=== PATIENT | male | born 1955 | race Caucasian/White ===

== ENCOUNTER → 2023-05-15 15:31 | Outpatient (CLI) | payer MEDICARE, SELFPAY ==
--- NOTE | 2023-05-15 15:40 | DI.RAD.S_ITS ---
PROCEDURE: XR FOOT RT MIN 3V INDICATIONS: Right foot pain TECHNIQUE: 3 views of the foot were acquired. COMPARISON: None. FINDINGS: Bones: No fractures or dislocations. No suspicious bony lesions. Plantar calcaneal enthesophyte. Soft tissues: No tibiotalar joint effusion. Achilles tendon appears normal. IMPRESSION: No displaced fracture. Dictated by: Alhaji Bob M.D. on 05/15/2023 at 16:36 Approved by: Alhaji Bob M.D. on 05/15/2023 at 16:37
== END ==
PROVIDERS: PCP Physician Assistant; Referring Provider Nurse Practitioner Family; Visit Provider Nurse Practitioner Family
DX: M79.671 Pain in right foot (principal)
CPT/HCPCS: 73630

== ENCOUNTER → 2023-07-07 09:00 | Outpatient (CLI) | payer MEDICARE, SELFPAY ==
--- NOTE | 2023-07-07 | DI.MRI.S_ITS ---
PROCEDURE: MR FOOT RT WO/W CON INDICATIONS: Right foot pain / idiopathic neuropathy TECHNIQUE: Noncontrast sagittal T1 spin echo and T2 fast spin echo with fat saturation, long-axis T1 spin echo and STIR; short-axis T1 spin echo with and without fat saturation, and T2 fast spin echo with fat saturation through the forefoot. Post-contrast short axis, long axis, and sagittal T1 spin echo with fat saturation through the forefoot. COMPARISON: [facility], CR, XR FOOT RT MIN 3V, 05/15/2023, 15:39. FINDINGS: Image quality: Excellent. Bones and joints: No acute trabecular bone injury or fracture. Circumscribed [id number] lesion at the 1st proximal phalangeal base is most likely related to overlying cartilage loss although a nonaggressive osseous lesion such as an enchondroma could appear similarly. Mild to moderate degenerative changes are seen at the 1st metatarsophalangeal joint and at the interphalangeal joints of the toes. Focal subchondral edema is seen at the articulation between the 1st and 2nd cuneiforms. No subluxation of the hallux sesamoids. No suspicious osseous enhancement. Soft tissues: No enhancing soft tissue mass. There is diffuse fatty infiltration of the intrinsic foot musculature compatible with chronic denervation changes. Visualized flexor and extensor tendons appear intact, without tenosynovitis. The distal insertions of the peroneus brevis and longus tendons appear intact. The principal Lisfranc ligament appears intact. No interdigital mass. Sagittal images demonstrate no evidence for plantar plate tears. IMPRESSION: 1. Diffuse fatty infiltration of the intrinsic foot musculature is consistent with chronic denervation changes. 2. [id number]-[id number]-[id number] degenerative changes at the 1st metatarsophalangeal joint and throughout the interphalangeal joints of the toes. Circumscribed [id number] lesion in the 1st proximal phalangeal base is most likely a subchondral cyst related to overlying cartilage loss versus a nonaggressive osseous lesion such as an enchondroma. Focal degenerative changes at the 1st and 2nd cuneiforms. Approved by: Jose Vo M.D. on 07/07/2023 at 14:13
== END ==
PROVIDERS: PCP Physician Assistant; Referring Provider Nurse Practitioner Family; Visit Provider Nurse Practitioner Family
DX: G60.9 Hereditary and idiopathic neuropathy, unspecified (principal); M79.671 Pain in right foot
CPT/HCPCS: 73720; A9579

== ENCOUNTER → 2024-06-22 12:30 | Outpatient (CLI) | payer MEDICARE, SELFPAY ==
--- NOTE | 2024-06-22 12:33 | DI.RAD.S_ITS ---
PROCEDURE: XR HIP W PEL IF DONE LT 2V INDICATIONS: HIP PAIN TECHNIQUE: AP pelvis with lateral view(s) of the left hip(s). COMPARISON: None. FINDINGS: Bones: No fractures or dislocations. Pelvic ring appears intact. No suspicious bony lesions. Moderate bilateral degenerative hip joint space narrowing. Minimal periarticular osteophytes. No erosions. Degenerative changes are present within the lower lumbar spine. Soft tissues: The visualized bowel gas pattern is normal. No suspicious soft tissue calcifications. IMPRESSION: Moderate bilateral hip arthritic change. Dictated by: Tana Correia M.D. on 06/22/2024 at 21:30 Approved by: Tana Correia M.D. on 06/22/2024 at 21:31
== END ==
PROVIDERS: PCP Physician Assistant; Referring Provider Physician Assistant; Visit Provider Physician Assistant
DX: M25.552 Pain in left hip (principal)
CPT/HCPCS: 73502

== ENCOUNTER → 2024-07-13 08:20 | Outpatient (CLI) | payer MEDICARE, SELFPAY ==
--- NOTE | 2024-07-13 | DI.US.S_ITS ---
PROCEDURE: US ABDOMEN LIMITED INDICATIONS: ELEVATED LIVER FUNCTION TESTS TECHNIQUE: Real-time scanning was performed of the abdominal and retroperitoneal organs, with image documentation. COMPARISON: None. FINDINGS: Liver: Liver is normal in size and homogeneous in echotexture. Gallbladder: Gallbladder is normal in sonographic appearance without gallstones, gallbladder wall thickening, pericholecystic fluid, or abnormal sonographic Wolf's. Biliary ducts: Intrahepatic bile ducts are non-dilated. Extrahepatic bile duct caliber measures 4 mm. Normal is 6-7 mm or less in diameter, or 10 mm or less post-cholecystectomy. Pancreas: Pancreas not well visualized secondary to bowel gas. Miscellaneous: No free abdominal fluid. IMPRESSION: Normal sonographic evaluation of the liver and gallbladder. No biliary ductal dilatation. Dictated by: Danilo Kebede M.D. on 07/13/2024 at 18:18 Approved by: Danilo Kebede M.D. on 07/13/2024 at 18:19
== END ==
PROVIDERS: PCP Physician Assistant; Referring Provider Physician Assistant; Visit Provider Physician Assistant
DX: R79.89 Other specified abnormal findings of blood chemistry (principal)
CPT/HCPCS: 76705

== ENCOUNTER → 2024-08-02 08:30 | Outpatient (CLI) | payer MEDICARE, SELFPAY ==
[2024-08-02 09:04] LABS: Estimated Glomerular Filt Rate > 60 mL/min (>60)
--- NOTE | 2024-08-02 10:00 | DI.CT.S_ITS ---
PROCEDURE: CT ABDOMEN WO/W CON INDICATIONS: COMPLEX RENAL CYST TECHNIQUE: Optional 5 mm thick noncontrast images acquired from the diaphragm to the iliac crests. After the administration of intravenous contrast, 5 mm thick images again acquired from the diaphragm to the iliac crests in the arterial and urographic phases. 5 mm thick coronal and sagittal reformats were then acquired. For radiation dose reduction, the following was used: automated exposure control, adjustment of mA and/or kV according to patient size. COMPARISON: [facility], , US ABDOMEN LIMITED, 07/13/2024, 8:41. FINDINGS: Image quality: Diagnostic. Kidneys and Ureters: No hydronephrosis. No solid mass. No complex renal cystic lesion which requires follow up. Moderate burden of punctate, nonobstructing bilateral nephrolithiasis. Bosniak 1 and 2 cystic lesions of the kidneys. OTHER: Lower chest: Unremarkable. Liver: No solid mass. Gallbladder: No radiopaque gallstones or wall thickening. Biliary ducts: No biliary dilation. Pancreas: No ductal dilation. Spleen: Size is within normal limits. Adrenal Glands: No adrenal nodules. Stomach and Bowel: Normal colonic caliber, without significant wall thickening. Colonic diverticulosis without evidence of diverticulitis. Peritoneum: No abnormal intraperitoneal fluid. No free air. Ventral Wall: No hernia. Abdominal Nodes: No retroperitoneal or mesenteric adenopathy by size criteria. Vessels: Aorta and inferior vena cava are normal in size. Bones: No aggressive osseous abnormality. IMPRESSION: Benign bilateral renal cysts. These are Bosniak 1/2. Moderate burden of nonobstructing bilateral nephrolithiasis. Dictated by: Alhaji Bob M.D. on 08/03/2024 at 12:02 Approved by: Alhaji Bob M.D. on 08/03/2024 at 12:04
== END ==
PROVIDERS: Radiology Diagnostic Radiology; PCP Physician Assistant; Referring Provider Internal Medicine; Visit Provider Internal Medicine
DX: N28.1 Cyst of kidney, acquired (principal); N20.0 Calculus of kidney
CPT/HCPCS: 36415; 74170; 82565; Q9967

== ENCOUNTER → 2025-07-03 09:45 | Outpatient (CLI) | payer MEDICARE, SELFPAY ==
--- NOTE | 2025-07-03 | DI.RAD.S_ITS ---
PROCEDURE: XR LUMBAR SPINE 2-3V INDICATIONS: back pain TECHNIQUE: 3 views of the lumbar spine were acquired. COMPARISON: None. FINDINGS: Lumbar spine curvature and alignment: Slight leftward curve appreciated. Bones: There are no osseous abnormalities. Disc spaces: Moderate degenerative disc disease T10-11 through L5-S1. Mild L4- 5 severe L5-S1 degenerative facet disease. Soft tissues: Multiple small calcifications overlie both kidneys. These may represent nonobstructing stones IMPRESSION: Degeneration. Possible nephrolithiasis Dictated by: Victorino Mon M.D. on 07/04/2025 at 9:44 Approved by: Victorino Mon M.D. on 07/04/2025 at 9:45
--- NOTE | 2025-07-03 | DI.RAD.S_ITS ---
PROCEDURE: XR CERVICAL SPINE 2V OR 3V INDICATIONS: neck pain TECHNIQUE: Three views of the cervical spine were acquired. COMPARISON: None. FINDINGS: Cervical spine curvature and alignment: Normal. Bones: There are no osseous abnormalities. Disc spaces: Mild C3-4, moderate C4-5, mild C5-6 , moderate C6-7 and C7-T1 degenerative disc disease noted. 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 Severe C3-4 through C7-T1 degenerative facet disease noted Soft tissues: No soft tissue swelling, calcification or mass. IMPRESSION: Degeneration Dictated by: Victorino Mon M.D. on 07/04/2025 at 9:45 Approved by: Victorino Mon M.D. on 07/04/2025 at 9:46
--- NOTE | 2025-07-03 09:56 | DI.RAD.S_ITS ---
PROCEDURE: XR THORACIC SPINE 2V INDICATIONS: chronic neck and back pain TECHNIQUE: Two views of the thoracic spine were acquired. COMPARISON: None. FINDINGS: Thoracic spine curvature and alignment: Slight accentuation of the normal thoracic kyphotic curve noted. Bones: Mild chronic wedging of all thoracic vertebral bodies with endplate irregularity is compatible with chronic Scheuermann's disease due to disc degeneration Disc spaces: Moderate degenerative disc disease is seen throughout the thoracic spine Soft tissues: No soft tissue swelling, calcification or mass. 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 on 07/04/2025 at 9:42 Approved by: Victorino Mon M.D. on 07/04/2025 at 9:43
== END ==
PROVIDERS: PCP Physician Assistant; Referring Provider Physician Assistant; Visit Provider Physician Assistant
DX: M50.31 Other cervical disc degeneration, high cervical region (principal); M50.33 Other cervical disc degeneration, cervicothoracic region; M47.812 Spondylosis without myelopathy or radiculopathy, cervical region; M47.813 Spondylosis without myelopathy or radiculopathy, cervicothoracic region; M54.9 Dorsalgia, unspecified; G89.29 Other chronic pain
CPT/HCPCS: 72040; 72070; 72100

== ENCOUNTER → 2025-08-28 11:39 | Outpatient (CLI) | payer MEDICARE, SELFPAY ==
--- NOTE | 2025-08-28 11:42 | DI.RAD.S_ITS ---
PROCEDURE: XR HIP W PEL IF DONE LT 2V INDICATIONS: chronic left hip pain TECHNIQUE: Two views of the left hip were acquired. COMPARISON: [facility], CR, XR HIP W PEL IF DONE LT 2V, 06/22/2024, 12:38. FINDINGS: Bones: CAM configuration left femoral head neck junction predispose to femoral acetabular impingement. SI and hip joints: Moderate degeneration left hip, mild degeneration right hip and mild degeneration both SI joints. Moderate L4-5 and L5-S1 degenerative disc and facet disease Soft tissues: No soft tissue swelling, calcification or mass. IMPRESSION: Moderate left hip degeneration. Dictated by: Victorino Mon M.D. on 08/29/2025 at 9:50 Approved by: Victorino Mon M.D. on 08/29/2025 at 9:51
== END ==
PROVIDERS: PCP Physician Assistant; Referring Provider Physical Medicine & Rehabilitation; Visit Provider Physical Medicine & Rehabilitation
DX: M16.12 Unilateral primary osteoarthritis, left hip (principal); M25.552 Pain in left hip; M47.816 Spondylosis without myelopathy or radiculopathy, lumbar region; M47.817 Spondylosis without myelopathy or radiculopathy, lumbosacral region; M47.818 Spondylosis without myelopathy or radiculopathy, sacral and sacrococcygeal region; M51.369 Other intervertebral disc degeneration, lumbar region without mention of lumbar back pain or lower extremity pain; M51.379 Other intervertebral disc degeneration, lumbosacral region without mention of lumbar back pain or lower extremity pain
CPT/HCPCS: 73502

== ENCOUNTER → 2025-09-15 09:06 | Outpatient (CLI) | payer MEDICARE, SELFPAY ==
[2025-09-15 12:29] LABS: Prostate Specific Antigen 7.43 ng/mL (0.10-4.00)
== END ==
PROVIDERS: PCP Physician Assistant; Referring Provider Urology; Visit Provider Urology
DX: R97.20 Elevated prostate specific antigen [PSA] (principal)
CPT/HCPCS: 36415; 84153

== ENCOUNTER → 2025-09-22 15:39 | Outpatient (CLI) | payer MEDICARE, SELFPAY ==
--- NOTE | 2025-09-22 15:40 | DI.MRI.S_ITS ---
PROCEDURE: MR PELVIC PROSTATE PROTOCOL INDICATIONS: 70 y/o M w/ elevated PSA, please eval TECHNIQUE: Coronal HASTE, axial T1 FSE with fat saturation, 3-plane nonbreath-hold T2 FSE. After the administration of contrast, dynamic axial, delayed axial and coronal VIBE or 2-D FLASH with fat saturation through the pelvis. Diffusion weighted imaging and ADC was performed. COMPARISON: [facility], CT, CT ABDOMEN WO/W CON, 08/02/2024, 9:14. FINDINGS: Image quality: Diffusion weighted and dynamic contrast enhanced images are diagnostic. Prostate: Gland size is 4.9 x 3.7 x 3.7 cm; ellipsoid gland volume is 35 mL. PSA density 0.21 ng/mL/cc. No significant foci of intrinsic T1 hyperintensity to suggest hemorrhage. Multiple BPH nodules. Median lobe hypertrophy. Lesion 1: Location: Left apex (far inferior) peripheral zone Size: 0.7 x 0.5 cm, (5/17). T2W signal: Hypointense. DWI signal: Mildly hyperintense. ADC signal: Mildly hypointense. Enhancement: Yes. Extracapsular extension: No. No neurovascular involvement. PI-RADS score: 4 Lesion 2: Location: Right mid gland peripheral zone Size: 1 x 0.8 cm, (5/). T2W signal: Hypointense. DWI signal: Mildly hyperintense ADC signal: Heterogeneous hypointensity Enhancement: Yes. Extracapsular extension: No. No neurovascular involvement. PI-RADS score: 4 Genitourinary system: Bladder wall thickness is normal. Distal ureters are non distended. Bowel and peritoneum: No pathologic free pelvic fluid. Inferior colon and small bowel loops are normal in caliber. Diverticulosis. Nodes and vessels: No pelvic or inguinal adenopathy by size criteria. Iliac vessels are normal in caliber. Soft tissues: Small fat containing inguinal hernias. Suspect left varicocele. Bones: Marrow demonstrates normal overall signal, without lesions to suggest metastases. IMPRESSION: 1. Prostatomegaly. Multiple BPH nodules. PSA density 0.21 ng/mL/cc. 2. Left apex peripheral zone observation measuring 0.7 cm. PI-RADS 4. 3. Left mid gland peripheral zone observation measuring 1 cm. PI-RADS 4. 4. No enlarged lymph nodes. Dictated by: Jez Flores M.D. on 09/22/2025 at 19:12 Approved by: Jez Flores M.D. on 09/22/2025 at 19:28
== END ==
PROVIDERS: PCP Physician Assistant; Referring Provider Urology; Visit Provider Urology
DX: N40.2 Nodular prostate without lower urinary tract symptoms (principal); R97.20 Elevated prostate specific antigen [PSA]
CPT/HCPCS: 72197; A9579

== ENCOUNTER → 2025-10-17 14:36 | Outpatient (CLI) | payer MEDICARE, SELFPAY ==
--- NOTE | 2025-10-17 14:41 | DI.RAD.S_ITS ---
PROCEDURE: XR HIP W PEL IF DONE LT 2V INDICATIONS: LEFT HIP PAIN TECHNIQUE: AP view of the pelvis and frogleg lateral view of the left hip. COMPARISON: [facility], CR, XR HIP W PEL LT 2V, 08/28/2025, 11:37. FINDINGS: Moderate bilateral left greater than right osteoarthritis. No fracture or dislocation. Degenerative changes of the spine and sacroiliac joints. IMPRESSION: Osteoarthritis. Dictated by: Tyler Hudson M.D. on 10/17/2025 at 15:21 Approved by: Tyler Hudson M.D. on 10/17/2025 at 15:22
== END ==
PROVIDERS: PCP Physician Assistant; Referring Provider Physical Medicine & Rehabilitation; Visit Provider Physical Medicine & Rehabilitation
DX: M16.0 Bilateral primary osteoarthritis of hip (principal); M25.552 Pain in left hip
CPT/HCPCS: 73502

== ENCOUNTER → 2025-11-04 09:01 | Outpatient (CLI) | payer MEDICARE, SELFPAY ==
[2025-11-04 12:13] LABS: Cholesterol 254 mg/dL (140-199); HDL Cholesterol 53 mg/dL (40-60); Triglycerides 160 mg/dL (35-150)
== END ==
PROVIDERS: Internal Medicine Cardiovascular Disease; PCP Physician Assistant; Referring Provider Physician Assistant; Visit Provider Physician Assistant
DX: E78.5 Hyperlipidemia, unspecified (principal)
CPT/HCPCS: 36415; 80061